=== PATIENT | male | born 1990 | race African-American/Black ===

== ENCOUNTER 2018-08-09 21:02 | Emergency (ER) | payer MEDICAID ==
[~2018-08-09] VITALS: Ht 172.7 cm; Wt 90.7 kg
[2018-08-09 21:10] VITALS: BP 136/64
--- NOTE | 2018-08-09 21:10 | NUR ---
ED Nurse Note: received report from RN Rosaline, pt currently resting at this time, will cont monitor. resp even and unlabored on RA.
[2018-08-09] MEDS ORDERED: AMOXICILLIN500 MG ORAL (21:31)
[2018-08-09] MEDS ORDERED: ALBUTEROL SULF8.5 GM INH (21:31)
[2018-08-09] MEDS ORDERED: PROMETHAZINE-D118 ML ORAL (21:31)
[2018-08-09 21:50] VITALS: BP 121/67
--- NOTE | 2018-08-09 21:51 | NUR ---
ED Nurse Note: pt cleared to be d/c per ERMD, pt discharge and aftercare instruction provided w/ prescription, pt education done via discussion and handout, pt advised to follow up with pcp or return to ed if changes in condition, pt verbalized understanding and agrees with plan, vss, ambulatory w/ steady gait, left w/ all belongings.
--- NOTE | 2018-08-09 22:50 | Emergency Room Report ---
History of Present Illness General Chief Complaint: Upper Respiratory Illness Source: Patient Present Illness HPI 27-year-old male presents ED for evaluation. Complaining of sore throat with cough times one week. Cough is dry, worsen night. Pain is dull, 8 out of 10, nonradiating. Denies fevers or chills. States his brother also has similar symptoms. Denies recent travel. Vaccinations up-to-date. No other aggravating relieving factors. Denies any other associated symptoms Allergies: Coded Allergies: No Known Allergies (Unverified , 08/09/18) Patient History Past Medical History: none Past Surgical History: none Pertinent Family History: none Social History: Denies: smoking, alcohol use, drug use Immunizations: UTD Reviewed Nursing Documentation: PMH: Agreed; PSxH: Agreed Nursing Documentation-PMH Past Medical History: No Stated History Review of Systems All Other Systems: negative except mentioned in HPI Physical Exam Vital Signs Date Time Temp Pulse Resp B/P (MAP) Pulse Ox O2 Delivery O2 Flow Rate FiO2 08/09/18 21:04 98.2 77 14 94 Room Air 08/09/18 21:10 136/64 Sp02 EP Interpretation: reviewed, normal General Appearance: no apparent distress, alert, GCS 15, non-toxic Head: normocephalic, atraumatic Eyes: bilateral eye normal inspection, bilateral eye PERRL ENT: hearing grossly normal, no angioedema, normal voice, TMs + canals normal, pharyngeal erythema, tonsillar exudate Neck: full range of motion, supple/symm/no masses Respiratory: chest non-tender, lungs clear, normal breath sounds, speaking full sentences Cardiovascular #1: regular rate, rhythm, no edema Cardiovascular #2: 2+ carotid (R), 2+ carotid (L), 2+ radial (R), 2+ radial (L) , 2+ dorsalis pedis (R), 2+ dorsalis pedis (L) Gastrointestinal: normal bowel sounds, non tender, soft, non-distended, no guarding, no rebound Rectal: deferred Genitourinary: normal inspection, no CVA tenderness Musculoskeletal: back normal, gait/station normal, normal range of motion, non- tender Neurologic: alert, oriented x3, responsive, motor strength/tone normal, sensory intact, speech normal Psychiatric: judgement/insight normal, memory normal, mood/affect normal, no suicidal/homicidal ideation Reflexes: 3+ bicep (R), 3+ bicep (L), 3+ tricep (R), 3+ tricep (L), 3+ knee (R) , 3+ knee (L) Skin: normal color, no rash, warm/dry, well hydrated Lymphatic: adenopathy Medical Decision Making Diagnostic Impression: Primary Impression: Pharyngitis Qualified Codes: J02.9 - Acute pharyngitis, unspecified ER Course Hospital Course 27-year-old male presents to ED complaining of sore throat + cough Differential diagnoses include: URI, pharyngitis, otitis media Clinical course Patient placed on stretcher. After initial history, physical exam reveals a male in no acute distress. Bilateral TM unremarkable. There is pharyngeal erythema w/ tonsillar exudates. Noted lymphadenopathy. lungs clear. discussed findings with patient. Patient's brother was given antibiotics with resolution of symptoms. We'll treat in similar fashion. Also prescribe an inhaler and cough medication. Safe for discharge with close outpatient follow- up. States he has a PMD Diagnosis - pharyngitis Stable and discharged home with prescriptions for albuterol, promethazine/ codeine, amoxicillin. Instructed to followup with PMD. return to ED if symptoms recur or worsen Last Vital Signs Date Time Temp Pulse Resp B/P (MAP) Pulse Ox O2 Delivery O2 Flow Rate FiO2 08/09/18 21:50 77 18 Room Air 08/09/18 21:50 98.2 121/67 98 Status: improved Disposition: HOME, SELF-CARE Condition: Improved Scripts Albuterol Sulfate* (ALBUTEROL SULFATE MDI*) 8.5 Gm Hfa.aer.ad 2 PUFF INH Q6H, #1 EA 0 Refills Prov: Harvey Jefferson MD 08/09/18 D-Methorphan Hb/Prometh Hcl* (PROMETHAZINE-DM SYRUP*) 118 Ml Syrup 5 ML ORAL Q6H PRN for For Cough, #118 ML 0 Refills Prov: Harvey Jefferson MD 08/09/18 Amoxicillin* (AMOXIL*) 500 Mg Capsule 500 MG ORAL THREE TIMES A DAY, #21 CAP Prov: Harvey Jefferson MD 08/09/18 Patient Instructions: Pharyngitis, [id number] Harvey Jefferson MD August 09, 2018 22:50
== END 2018-08-09 21:51 | disposition home or self-care (01) ==
LOC: EMR 21:11
DX: J02.9 Acute pharyngitis, unspecified (principal)
CPT/HCPCS: 99282

== ENCOUNTER 2018-09-26 09:00 | Emergency (ER) | payer MEDICAID ==
[~2018-09-26] VITALS: Ht 172.7 cm; Wt 87.5 kg
[~2018-09-26 09:00] MED LIST: ALBUTEROL SULF8.5 GM INH; AMOXICILLIN500 MG ORAL; PROMETHAZINE-D118 ML ORAL
--- NOTE | 2018-09-26 09:10 | NUR ---
ED Nurse Note: Patient walked into ED due to bee sting yesterday on the left face (cheek). patient reports his brother removed the sting for him. patient reports he feels like it's swollen, tight. patient denies any rash or difficulty in breathing. patient is alert awake x4 ambulatory with steady gait. breathing unlabored and even. skin is warm to touch.
[2018-09-26] MEDS ORDERED: Hydrocortisone 1% Cr 15gm TOPIC ONE (09:15)
--- NOTE | 2018-09-26 09:25 | Emergency Room Report ---
History of Present Illness General Chief Complaint: Animal Bite Source: Patient Present Illness HPI Patient states that he was stung by bee yesterday and had some swelling on his cheek. He states this morning it is much better but has never been stung by bees and so wanted to get checked out. He also states he has a little bit of a sore throat. He states that started over the past day he denies any difficulty breathing or throat swelling. He has been stung previously. He has no other complaints. Allergies: Coded Allergies: No Known Allergies (Unverified , 08/09/18) Patient History Past Medical History: none Past Surgical History: none Social History: Denies: smoking, alcohol use, drug use Reviewed Nursing Documentation: PMH: Agreed; PSxH: Agreed Nursing Documentation-PMH Past Medical History: No Stated History Review of Systems All Other Systems: negative except mentioned in HPI Physical Exam Vital Signs Date Time Temp Pulse Resp B/P (MAP) Pulse Ox O2 Delivery O2 Flow Rate FiO2 09/26/18 09:04 98.6 76 16 112/63 (79) 97 Room Air Sp02 EP Interpretation: reviewed, normal General Appearance: no apparent distress, alert, GCS 15, non-toxic Head: normocephalic, atraumatic, other - Slight swelling over L. cheek, barely able to differentiate swelling from normal. Eyes: bilateral eye normal inspection, bilateral eye PERRL ENT: hearing grossly normal, normal pharynx, no angioedema, normal voice, pharyngeal erythema Neck: full range of motion, supple/symm/no masses Respiratory: no respiratory distress, no retraction, no accessory muscle use, speaking full sentences Rectal: deferred Musculoskeletal: normal inspection, back normal, gait/station normal Neurologic: alert, oriented x3, responsive, motor strength/tone normal, sensory intact, speech normal Psychiatric: judgement/insight normal, memory normal, mood/affect normal, no suicidal/homicidal ideation Skin: normal color, no rash, warm/dry, well hydrated Medical Decision Making Diagnostic Impression: Primary Impression: Hymenoptera sting Additional Impression: Pharyngitis ER Course This patient has a bee sting. There is very little swelling. This is a very mild local reaction. He was instructed to obtain [id number] hydrocortisone cream and oral Benadryl as needed. He also has pharyngitis. Physical exam is consistent with a viral etiology. There is no evidence of peritonsillar abscess or deep neck abscess. There is no airway edema. Overall , this patient had a very benign examination. The patient only needs supportive care. The patient is instructed to get [id number] lozenges and use ibuprofen as needed. The patient was given return precautions and followup instructions. Last Vital Signs Date Time Temp Pulse Resp B/P (MAP) Pulse Ox O2 Delivery O2 Flow Rate FiO2 09/26/18 09:04 98.6 76 16 112/63 (79) 97 Room Air Status: improved Disposition: HOME, SELF-CARE Condition: Improved Portia Damon DO Sep 26, 2018 09:25
[2018-09-26 09:26] VITALS: BP 118/68
[2018-09-26 09:38] VITALS: BP 118/68
--- NOTE | 2018-09-26 09:39 | NUR ---
ER DISCHARGE NOTE: Patient is cleared to be discharged per ERMD Dr. Damon, pt is aox4, on room air, with stable vital signs. pt was given dc instructions, pt was able to verbalize understanding, pt id band removed without complications. pt is able to ambulate with steady gait. pt took all belongings.
== END 2018-09-26 09:39 | disposition home or self-care (01) ==
LOC: EMR 09:39
DX: T63.441A Toxic effect of venom of bees, accidental (unintentional), initial encounter (principal); J02.9 Acute pharyngitis, unspecified; Y92.9 Unspecified place or not applicable
CPT/HCPCS: 99282